=== PATIENT | female | born 1975 | race Two or more races ===

== ENCOUNTER 2020-05-19 05:34 | Emergency (ER) | payer OTHER ==
[~2020-05-19] VITALS: Ht 154.9 cm; Wt 54.4 kg
== END 2020-05-19 10:09 | disposition home or self-care (01) ==
LOC: ER 05:34
DX: R10.31 Right lower quadrant pain (principal)

== ENCOUNTER 2021-11-04 08:00 | Outpatient (CLI) | payer OTHER | END 2021-11-04 08:30 | disposition home or self-care (01) | LOC: PPH VACUNA 08:00 | PROVIDERS: ATTEND Emergency Medicine Pediatric Emergency Medicine | DX: Z23 Encounter for immunization (principal) ==

== ENCOUNTER 2022-10-11 09:59 | Outpatient (CLI) | payer OTHER | END 2022-10-11 10:09 | disposition home or self-care (01) | LOC: PPH VACUNA 09:59 | PROVIDERS: ATTEND Emergency Medicine Pediatric Emergency Medicine | DX: Z23 Encounter for immunization (principal) ==

== ENCOUNTER 2022-10-28 21:14 | Emergency (ER) | payer OTHER ==
[~2022-10-28] VITALS: Ht 152.4 cm; Wt 88.5 kg
== END 2022-10-28 23:51 | disposition home or self-care (01) ==
LOC: ER 21:14
DX: N39.0 Urinary tract infection, site not specified (principal)

== ENCOUNTER 2023-03-11 10:47 | Emergency (ER) | payer OTHER ==
[~2023-03-11] VITALS: Ht 154.9 cm; Wt 56.7 kg
[2023-03-11] MEDS ORDERED: AZO STANDARD95 MG PO (11:11)
[2023-03-11] MEDS ORDERED: SULFAMETHOXAZO473 ML PO (11:11)
== END 2023-03-11 17:26 | disposition home or self-care (01) ==
LOC: ER 10:47
DX: N39.0 Urinary tract infection, site not specified (principal); R30.0 Dysuria; G44.89 Other headache syndrome; Z20.822 Contact with and (suspected) exposure to COVID-19; I10 Essential (primary) hypertension